=== PATIENT | male | born 1980 | race Caucasian/White ===

== ENCOUNTER → 2016-07-27 | Outpatient (CLI) | payer BC ==
[2016-07-27 08:10] LABS: CHLORIDE,CL 107 mmol/L (98-110); SODIUM,NA 140 mmol/L (136-146)
--- NOTE | 2016-07-27 13:25 | CR ---
EXAMINATION: Left shoulder HISTORY: Pain COMPARISON: None TECHNIQUE: 3 views FINDINGS/IMPRESSION: There is no acute osseous abnormality or fracture identified. There is mild wid ening at the acromioclavicular joint with adjacent dystrophic calcifications, likely secondary to an old injury. Bone mineralization is otherwise normal.
== END ==
LOC: MW.CHFP 07:30
PROVIDERS: ATTEND Student in an Organized Health Care Education/Training Program
DX: Z00.00 Encounter for general adult medical examination without abnormal findings (principal); M25.512 Pain in left shoulder; M25.812 Other specified joint disorders, left shoulder
CPT/HCPCS: 36415; 73030-26-LT; 73030-LT; 80053; 80061